=== PATIENT | female | born 1980 | race Caucasian/White ===

== ENCOUNTER → 2017-06-09 | Outpatient (CLI) | payer OTHER | END | disposition home or self-care (01) | LOC: SPEC 14:58 | DX: Z32.00 Encounter for pregnancy test, result unknown (principal) | CPT/HCPCS: 88175 ==

== ENCOUNTER → 2017-06-13 | Outpatient (CLI) | payer OTHER ==
[2017-06-13 07:50] LABS: BASO % 0 % (0-3); EOS % 3 % (0-3); HEMATOCRIT 40.2 % (36.0-47.0); HEMOGLOBIN 13.6 g/dL (12.0-15.5); LYMPH # 1.6 x10^3/uL (1.0-4.8); LYMPH % 23 % (24-48); MEAN CORPUSCULAR HEMOGLOBIN 29 pg (25-35); MEAN CORPUSCULAR HGB CONC 34 g/dL (31-37); MEAN CORPUSCULAR VOLUME 85 fL (79-100); MONO % 8 % (0-9); NEUT % 66 % (31-73); PLATELET COUNT 225 x10^3/uL (140-400); RED BLOOD COUNT 4.72 x10^6/uL (3.50-5.40); WHITE BLOOD COUNT 6.9 x10^3/uL (4.0-11.0)
--- NOTE | 2017-06-13 09:15 | RAD ---
Obstetrical ultrasound, 06/13/2017: History: , unsure of dates Transabdominal scans were obtained. There is a single intrauterine fetus in a breech orientation. The biparietal diameter measures 2.2 cm compatible with a gestational age of 13-14 weeks. This corresponds well to the other measurements and yields a sonographic EDC of 12/16/2017. activity and cardiac motion are present. The heart rate was 152 bpm. A full survey was not attempted at this early stage. A normal amount of amniotic fluid is present. The placenta lies anteriorly. No periplacental hemorrhage is identified. The cervical length was estimated at 4-5 cm. The maternal ovaries were not visualized. IMPRESSION: Single viable intrauterine fetus of 13-14 weeks gestational age as described above.
[2017-06-13 09:20] LABS: BILIRUBIN,URINE NEGATIVE (NEG); GLUCOSE,URINE NEGATIVE (NEG); NITRITE,URINE NEGATIVE (NEG); PROTEIN,URINE NEGATIVE (NEG-TRACE); UROBILINOGEN,URINE 0.2 mg/dL (0.2 mg/dL)
[2017-06-13 09:49] LABS: BACTERIA,URINE 0 /HPF (0-FEW); RBC,URINE 0 /HPF (0-2); SQUAMOUS EPITHELIAL CELL,UR FEW /LPF; WBC,URINE OCC /HPF (0-4)
[2017-06-13 16:18] LABS: HIV ANTIBODY Non Reactive (Non Reactive)
== END | disposition home or self-care (01) ==
LOC: US 06:31
DX: Z36.87 Encounter for antenatal screening for uncertain dates (principal); Z36.89 Encounter for other specified antenatal screening; Z3A.14 14 weeks gestation of pregnancy
CPT/HCPCS: 36415; 76801; 81001; 85025; 86593; 86701; 86702; 86703; 86762; 86850; 86900; 86901; 87086; 87340; 87341; 87535

== ENCOUNTER → 2017-07-12 | Outpatient (CLI) | payer OTHER ==
[2017-07-20 12:16] LABS: AFP VALUE 21.8 ng/mL (.); DIA VALUE 127.46 pg/mL (.); DSR BY AGE 1 IN 298 (.); HCG VALUE 36749 mIU/mL (.)
[2017-08-03 05:16] LABS: AFP MOM 0.58 (.); DSR 2ND TRIMESTER 1 IN 797 (.); GEST AGE ON COLLECTION DATE 17.6 WEEKS (.); GESTAT AGE BASED ON EDD (.); HCG MOM 1.38 (.); MULTIPLE GESTATION No (.); OSBR RISK 1 IN 10000 (.); RACE Caucasian (.); T18 RISK Not increased (.); TEST RESULTS: *Screen Negative* (.); UE3 MOM 0.94 (.); WEIGHT 170 lbs (.)
== END | disposition home or self-care (01) ==
LOC: LAB 07:21
DX: Z34.92 Encounter for supervision of normal pregnancy, unspecified, second trimester (principal); Z3A.21 21 weeks gestation of pregnancy
CPT/HCPCS: 36415; 81511

== ENCOUNTER → 2017-08-11 | Outpatient (CLI) | payer OTHER | END | disposition home or self-care (01) | LOC: KCIC US 14:44 | DX: Z34.82 Encounter for supervision of other normal pregnancy, second trimester (principal); Z3A.21 21 weeks gestation of pregnancy | CPT/HCPCS: 76805 ==

== ENCOUNTER → 2017-09-09 | Outpatient (CLI) | payer OTHER | END | disposition home or self-care (01) | LOC: LAB 07:05 | DX: Z34.92 Encounter for supervision of normal pregnancy, unspecified, second trimester (principal); Z3A.25 25 weeks gestation of pregnancy | CPT/HCPCS: 36415; 82950 ==

== ENCOUNTER → 2018-08-28 | Outpatient (CLI) | payer OTHER ==
[2017-12-24 11:25] VITALS: BP 108/76
[2018-08-28 09:04] LABS: BASO % 1 % (0-3); EOS # 0.1 x10^3/uL (0.0-0.7); EOS % 3 % (0-3); HEMATOCRIT 40.7 % (36.0-47.0); HEMOGLOBIN 13.7 g/dL (12.0-15.5); LYMPH # 1.7 x10^3/uL (1.0-4.8); LYMPH % 34 % (24-48); MEAN CORPUSCULAR HEMOGLOBIN 28 pg (25-35); MEAN CORPUSCULAR HGB CONC 34 g/dL (31-37); MEAN CORPUSCULAR VOLUME 85 fL (79-100); MONO # 0.4 x10^3/uL (0.0-1.1); MONO % 8 % (0-9); NEUT # 2.7 x10^3uL (1.8-7.7); NEUT % 54 % (31-73); PLATELET COUNT 216 x10^3/uL (140-400); RED BLOOD COUNT 4.81 x10^6/uL (3.50-5.40); RED CELL DISTRIBUTION WIDTH 13.7 % (11.5-14.5); WHITE BLOOD COUNT 4.9 x10^3/uL (4.0-11.0)
[2018-08-28 09:24] LABS: ALBUMIN 3.6 g/dL (3.4-5.0); CALCIUM 8.9 mg/dL (8.5-10.1); CREATININE 0.8 mg/dL (0.6-1.0); GFR 81.6; TOTAL BILIRUBIN 0.5 mg/dL (0.2-1.0); TOTAL PROTEIN 7.2 g/dL (6.4-8.2)
[2018-08-28 09:25] LABS: CHOLESTEROL/HDL RATIO 3.2
== END | disposition home or self-care (01) ==
LOC: LAB 07:09
PROVIDERS: ATTEND Family Medicine
DX: Z00.00 Encounter for general adult medical examination without abnormal findings (principal)
CPT/HCPCS: 36415; 80053; 80061; 84443; 85025

== ENCOUNTER → 2019-01-02 | Outpatient (CLI) | payer OTHER ==
[2017-12-24 11:25] VITALS: BP 108/76
--- NOTE | 2019-01-02 16:57 | KCIC ---
Examination: Ultrasound thyroid HISTORY: History of abnormal TSH. COMPARISON: None available. Findings: The right lobe of thyroid gland measures 5.4 x 2.1 x 2.0 cm. The left lobe of thyroid gland measures 5.7 x 2.0 x 3.0 cm. There is a hypoechoic nodule measuring 1 cm identified in the left lobe of the thyroid gland. The right and left lobes of thyroid gland appears somewhat heterogeneous. Impression: 1. A 1 cm hypoechoic nodule identified in the left lobe of the thyroid gland. ACR Ti-Rads 4. Recommend follow-up examination in 4- 6 months. 2. Heterogeneous appearance of the thyroid gland probably due to thyroiditis. Electronically signed by: Shubham Gutierrez MD (01/02/2019 4:55 PM) [place] [id number]
== END | disposition home or self-care (01) ==
LOC: KCIC US 15:22
PROVIDERS: ATTEND Family Medicine
DX: E04.1 Nontoxic single thyroid nodule (principal)
CPT/HCPCS: 76536

== ENCOUNTER → 2019-01-03 | Outpatient (CLI) | payer OTHER ==
[2017-12-24 11:25] VITALS: BP 108/76
[2019-01-03 08:38] LABS: FREE T4 0.9 ng/dL (0.76-1.46); THYROID STIM HORMONE (TSH) 3.596 uIU/mL (0.358-3.74)
== END | disposition home or self-care (01) ==
LOC: LAB 07:24
PROVIDERS: ATTEND Family Medicine
DX: R79.89 Other specified abnormal findings of blood chemistry (principal)
CPT/HCPCS: 36415; 84439; 84443; 84480

== ENCOUNTER → 2019-09-05 | Outpatient (CLI) | payer OTHER ==
[2017-12-24 11:25] VITALS: BP 108/76
[2019-09-05 08:04] LABS: BASO % 1 % (0-3); EOS # 0.1 x10^3/uL (0.0-0.7); EOS % 2 % (0-3); HEMOGLOBIN 13.6 g/dL (12.0-15.5); LYMPH # 1.5 x10^3/uL (1.0-4.8); LYMPH % 32 % (24-48); MEAN CORPUSCULAR HEMOGLOBIN 28 pg (25-35); MEAN CORPUSCULAR HGB CONC 33 g/dL (31-37); MEAN CORPUSCULAR VOLUME 85 fL (79-100); MONO # 0.4 x10^3/uL (0.0-1.1); MONO % 8 % (0-9); NEUT # 2.6 x10^3/uL (1.8-7.7); NEUT % 57 % (31-73); PLATELET COUNT 206 x10^3/uL (140-400); RED BLOOD COUNT 4.81 x10^6/uL (3.50-5.40); RED CELL DISTRIBUTION WIDTH 12.9 % (11.5-14.5); WHITE BLOOD COUNT 4.5 x10^3/uL (4.0-11.0)
[2019-09-05 08:46] LABS: CHOLESTEROL/HDL RATIO 3.3
[2019-09-05 08:53] LABS: FREE T4 0.98 ng/dL (0.76-1.46); THYROID STIM HORMONE (TSH) 2.468 uIU/mL (0.358-3.74)
[2019-09-05 08:58] LABS: ALBUMIN 3.8 g/dL (3.4-5.0); ALBUMIN/GLOBULIN RATIO 1.3 (1.0-1.7); CALCIUM 8.3 mg/dL (8.5-10.1); CREATININE 0.9 mg/dL (0.6-1.0); GFR 70.8; POTASSIUM 4.3 mmol/L (3.5-5.1); TOTAL BILIRUBIN 0.4 mg/dL (0.2-1.0); TOTAL PROTEIN 6.8 g/dL (6.4-8.2)
[2019-09-05 09:37] LABS: PLT ESTIMATE ADEQUATE (ADEQUATE)
[2019-09-05 16:10] LABS: CREAT RD UR 233.5 mg/dL (Not Estab.)
== END | disposition home or self-care (01) ==
LOC: LAB 07:42
PROVIDERS: ATTEND Family Medicine
DX: Z01.419 Encounter for gynecological examination (general) (routine) without abnormal findings (principal); E04.1 Nontoxic single thyroid nodule
CPT/HCPCS: 36415; 80053; 80061; 82043; 82570; 84439; 84443; 85025

== ENCOUNTER → 2019-09-13 | Outpatient (CLI) | payer OTHER ==
[2017-12-24 11:25] VITALS: BP 108/76
--- NOTE | 2019-09-13 16:57 | RAD ---
THYROID ULTRASOUND History: Thyroid nodule Comparison: January 02, 2019 Findings: Multiple sonographic images of the thyroid gland are submitted. Right lobe measured 5.3 x 1.9 x 1.6 cm. Left lobe measured 5.3 x 2.4 x 1.5 cm. There is diffuse heterogeneity of the thyroid parenchyma bilaterally. Isthmus measured 0.3 cm AP thickness. No discrete right thyroid nodularity is demonstrated. There is again oblong hypoechoic nodule with minimal internal vascularity of the anterior mid left gland about 1 x 0.4 x 1 cm in size, overall fairly similar in appearance. Not demonstrated on previous exam, there is more solid-appearing, slightly exophytic nodule of the inferior left gland about 1.2 x 0.8 x 0.8 cm in size with mild vascularity near the periphery. Impression: 1. Not demonstrated on the previous exam, there is a solid , somewhat exophytic nodule of the inferior left thyroid gland up to 1.2 cm in greatest dimension. Previously seen hypoechoic nodule of the mid left gland is similar. 2. There is diffuse heterogeneity of the thyroid parenchyma bilaterally, also thyromegaly as seen previously. Electronically signed by: Jethro Cobb MD (09/13/2019 4:54 PM) [id number]
== END | disposition home or self-care (01) ==
LOC: US 15:48
PROVIDERS: ATTEND Family Medicine
DX: E04.2 Nontoxic multinodular goiter (principal)
CPT/HCPCS: 76536

== ENCOUNTER → 2019-10-03 | Outpatient (CLI) | payer OTHER ==
[2017-12-24 11:25] VITALS: BP 108/76
[2019-10-03 08:47] LABS: FREE T4 0.89 ng/dL (0.76-1.46); THYROID STIM HORMONE (TSH) 2.226 uIU/mL (0.358-3.74)
== END ==
LOC: LAB 07:27
PROVIDERS: ATTEND Family Medicine
DX: E04.1 Nontoxic single thyroid nodule (principal)
CPT/HCPCS: 36415; 84439; 84443; 86376

== ENCOUNTER → 2019-10-15 | Outpatient (CLI) | payer OTHER ==
[2017-12-24 11:25] VITALS: BP 108/76
--- NOTE | 2019-10-15 11:35 | RAD ---
EXAM: ULTRASOUND-GUIDED THYROID FINE-NEEDLE ASPIRATION. HISTORY: Thyroid nodules. Ultrasound-guided biopsy is requested. FINDINGS: The procedure along with its risks and benefits were explained to the patient. They agreed to proceed. A timeout procedure was performed. Sonographic images of the thyroid gland were obtained. The 2 solid target nodules in the left thyroid lobe were adequately visualized for biopsy. One is inferior, the other superior. In separate successive sterile procedures, the following was performed: The overlying skin was sterilely prepped and infiltrated with 1% lidocaine for local anesthesia. Under ultrasound guidance, 4 aspirates were obtained using 25-gauge needles. These were hand delivered to pathology who determined them adequate for diagnosis. Following completion of both procedures, a sterile dressing was placed. There were no immediate complications. IMPRESSION: 1. Successful ultrasound-guided fine-needle aspiration of the inferior and superior left thyroid nodules requested for biopsy. Electronically signed by: Patrizia Millan MD (10/15/2019 11:33 AM) [id number]
== END | disposition home or self-care (01) ==
LOC: US 09:04
PROVIDERS: ATTEND Radiology Body Imaging
DX: E04.1 Nontoxic single thyroid nodule (principal)
CPT/HCPCS: 10005; 60300; 76942